=== PATIENT | female | born 1955 | race Caucasian/White ===

== ENCOUNTER → 2018-06-30 10:51 | Outpatient (CLI) | payer OTHER, SELFPAY ==
--- NOTE | 2018-06-30 10:55 | BI_ITS ---
MAMMOGRAPHY - BILATERAL SCREENING REASON FOR EXAM: Female, 62 years old. Routine annual screening examination. PERTINENT HISTORY: Non-contributory. TECHNIQUE: Digital bilateral breast kojo (3D mammographic acquisition) in the CC and MLO projections. 2-D mediolateral oblique (MLO) and craniocaudad (CC) views of both breasts were obtained. CAD: Full Field Digital Mammography with Computer Added Detection was performed. COMPARISON: Comparison is made with prior study dated May 19, 2017 and May 18, 2016. FINDINGS: Breast Composition: There are scattered areas of fibroglandular density. There are no dominant masses or suspicious calcifications. Stable benign-appearing bilateral axillary lymph nodes. No other significant abnormalities are identified. There has been no significant change since the prior study. BI/SCREENING MAMM (CAD), BILAT IMPRESSION: Stable bilateral screening mammogram. Yearly follow-up mammogram recommended. (A) ASSESSMENT CATEGORY: BIRADS Category 2: Benign. A letter regarding these results will be sent to the patient by the facility within 30 days. Approximately 10% of breast cancers are not detected by mammography. A normal mammogram should not delay biopsy of a clinically suspicious abnormality. [id number] Electronically Signed: Bertin Cummins MD at 8:59 EST Tel [phone], Service support ,
--- OUTSIDE RECORDS SUMMARY | 2018-10-03 09:52 | XMS RPT_ITS ---
:1955 Author Organization OHIP Care Team Providers Name Role Phone Antonia Mixon Attending Unavailable Antonia Mixon Primary Care Unavailable PROBLEMS PROBLEMS No Problem Records FoundPROCEDURES PROCEDURES No Procedure Records FoundRESULTS RESULTS SCREENING MAMM (CAD), Observed: 06/30/2018 Status: F Source: [facility] 10:55 AM [facility] REPOSITORY [facility] Imaging Services [address] [place] [id number] SCREENING MAMM (CAD), BIL MR#: [id number] Acct: [id number] Name: SILVINA TERRAZAS Rep #: [id number] : 1955 F 62 From: Bertin Cummins MD PCP: Antonia Mixon MD Status: REG CLI Study: SCREENING MAMM (CAD), BILAT Date of Exam: 06/30/18 Exam# [id number] Ordering Dr: Antonia Mixon MD MAMMOGRAPHY - BILATERAL SCREENING REASON FOR EXAM: Female, 62 years old. Routine annual screening examination. PERTINENT HISTORY: Non-contributory. TECHNIQUE: Digital bilateral breast kojo (3D mammographic acquisition) in the CC and MLO projections. 2-D mediolateral oblique (MLO) and craniocaudad (CC) views of both breasts were obtained. CAD: Full Field Digital Mammography with Computer Added Detection was performed. COMPARISON: Comparison is made with prior study dated May 19, 2017 and May 18, 2016. FINDINGS: Breast Composition: There are scattered areas of fibroglandular density. There are no dominant masses or suspicious calcifications. Stable benign-appearing bilateral axillary lymph nodes. No other significant abnormalities are identified. There has been no significant change since the prior study. BI/SCREENING MAMM (CAD), BILAT IMPRESSION: Stable bilateral screening mammogram. Yearly follow-up mammogram recommended. (A) ASSESSMENT CATEGORY: BIRADS Category 2: Benign. A letter regarding these results will be sent to the patient by the facility within 30 days. Approximately 10% of breast cancers are not detected by mammography. A normal mammogram should not delay biopsy of a clinically suspicious abnormality. [id number] Electronically Signed: Bertin Cummins MD at 8:59 EST Tel [phone], Service support , CC: Antonia Mixon MD Chromosomal Disorders Counselor: Signed ALLERGIES ALLERGIES No Allergies Records FoundENCOUNTERS ENCOUNTERS ADMIT/DISCHARGE ACCOUNT ADMITTING ENCOUNTER LOCATION SOURCE NUMBER CLASS 06/30/2018 [id number] [facility] [address] [place] [address] ing:OPBI Repository PAYERS PAYERS ENCOUNTER GUARANTOR PAYER SUBSCRIBER SOURCE 06/30/2018 BLANCA [facility] Primary SILVINA A [facility] [id number] S Insurance:MEDICAL EDINGTONDOB: [facility] [address] BOX [facility] [id number] Number: Repository [id number]: [phone] [id number] [phone] () Date:[id number] [address]FK: 06/30/2018 Secondary NOT GIVENUNK Otf Insurance:SELF PAY [facility] Number: Effective Repository Date:2018-05-16
== END ==
PROVIDERS: Family Provider Internal Medicine; PCP Internal Medicine; Visit Provider Internal Medicine
DX: Z12.31 Encounter for screening mammogram for malignant neoplasm of breast (principal)
CPT/HCPCS: 77063; 77067

== ENCOUNTER → 2019-01-08 | Outpatient (CLI) | payer OTHER, SELFPAY ==
--- NOTE | 2019-01-08 12:46 | RAD_ITS ---
STUDY: X-RAY CHEST REASON FOR EXAM: Female, 63 years old. Shortness of breath TECHNIQUE: PA and lateral views of the chest. COMPARISON: None. FINDINGS: The lungs are clear and expanded. There is no demonstrated pleural abnormality. Normal size heart. Normal mediastinum and zhang. Normal visualized pulmonary arteries. Normal visualized aortic arch and descending thoracic aorta. Normal visualized thoracic spine. Normal visualized ribs, clavicles, and shoulders. There is no demonstrated abnormality of the visualized soft tissue structures of the upper abdomen. RAD/Chest PA and Lateral IMPRESSION: Normal x-ray examination of the chest. Electronically Signed: Michael Zazueta MD at 16:47 EDT Tel , Service support ,
== END | disposition home or self-care (01) ==
LOC: HPRAD 12:43
PROVIDERS: Family Provider Internal Medicine; PCP Internal Medicine; Referring Provider Internal Medicine; Visit Provider Internal Medicine
DX: R06.02 Shortness of breath (principal)
CPT/HCPCS: 71046

== ENCOUNTER → 2019-01-10 | Outpatient (CLI) | payer OTHER, SELFPAY ==
--- NOTE | 2019-01-10 09:39 | ECHOCS_ITS ---
Reason For Study: Murmur Procedure This was a 2D Doppler, Color Flow transthoracic echocardiogram. Contrast injection was performed. Exam performed in department. Left Ventricle Normal LV size. The estimated ejection fraction is 65 %. Normal diastology for age. No regional wall motion abnormalities noted. Right Ventricle Normal RV size. Normal systolic function. Atria Normal left atrium. Normal right atrium. No doppler evidence for ASD. Mitral Valve There is no mitral valve stenosis. Mild-Moderate (1-2+) mitral valve insufficiency. Tricuspid Valve There is no tricuspid stenosis. Mild tricuspid valve insufficiency. Pulmonary artery systolic pressure is 25 mmHg. Aortic Valve Trisinus/trileaflet aortic valve. There is no aortic stenosis. No aortic valve insufficiency. Pulmonic Valve There is no pulmonic valvular stenosis. No pulmonic valve insufficiency. Great Vessels Normal aortic root. Pericardium/Pleural No pericardial effusion. Medication Diluted definity 2ml given slow IV push to enhance endocardial definition. MMode/2D Measurements & Calculations LVIDd: 4.6 cm IVSd: 1.0 cm Ao root diam: 2.7 cm LVIDs: 2.7 cm LVPWd: 0.92 cm RVDd: 2.4 cm FS: 41.7 % LAV(MOD-bp): 32.2 ml LVAd ap4: 25.3 cm2 SV(MOD-sp4): 45.9 ml LAV(MOD-bp) Indexed: 19.0 ml/m2 EDV(MOD-sp4): 71.6 ml LAV(MOD-sp2): 28.1 ml EDV(sp4-el): 74.0 ml LAV(MOD-sp4): 31.6 ml LVAs ap4: 13.5 cm2 ESV(MOD-sp4): 25.7 ml ESV(sp4-el): 25.5 ml EF(MOD-sp4): 64.1 % EF(sp4-el): 65.5 % SV(sp4-el): 48.5 ml LA A4 area: 13.8 cm2 LA dimension(2D): 4.0 cm RA A4 area: 8.7 cm2 Doppler Measurements & Calculations MV E max sabas: 99.2 cm/sec Lat Peak E' Sabas: 7.7 cm/sec Med Peak E' Sabas: 7.0 cm/sec MV A max sabas: 116.5 cm/sec E/E' lat: 12.8 E/E' med: 14.1 MV E/A: 0.85 Ao V2 max: 190.1 cm/sec LV V1 max: 122.4 cm/sec PA V2 max: 101.9 cm/sec Ao max P.4 mmHg LV V1 max P.0 mmHg Ao V2 mean: 124.3 cm/sec Ao mean P.9 mmHg Ao V2 VTI: 41.0 cm TR max sabas: 229.6 cm/sec TR max P.1 mmHg Interpretation Summary Diluted definity 2ml given slow IV push to enhance endocardial definition. The estimated ejection fraction is 65 %. Normal diastology for age. Mild-Moderate (1-2+) mitral valve insufficiency. Mild tricuspid valve insufficiency. The study was technically difficult. Ordering Physician: Antonia Mixon Referring Physician: Antonia Mixon Performed By: Mary Jane Massey, RDCS, RVT
== END | disposition home or self-care (01) ==
PROVIDERS: Family Provider Internal Medicine; PCP Internal Medicine; Referring Provider Internal Medicine; Visit Provider Internal Medicine
DX: R01.1 Cardiac murmur, unspecified (principal)
CPT/HCPCS: 93306; Q9957; A4216; C8929

== ENCOUNTER → 2019-07-09 08:11 | Outpatient (CLI) | payer OTHER, SELFPAY ==
--- NOTE | 2019-07-09 08:18 | BD_ITS ---
STUDY: DUAL ENERGY X-RAY ABSORPTIOMETRY / DXA REASON FOR EXAM: Female, 63 years old. 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 COMPARISON: Comparison is made with prior examination dated July 04, 2017. FINDINGS: Lumbar Spine (L1-L4): g/cm2 (1.212) / T-score (0.3) / Z-score (1.7) Findings are suggestive of normal bone density with a low fracture risk. Left Femur Total: g/cm2 (0.843) / T-score (-1.3) / Z-score (-0.2) Left Femoral Neck: g/cm2 (0.797) / T-score (-1.7) / Z-score (-0.3) Right Femur Total: g/cm2 (0.819) / T-score (-1.5) / Z-score (-0.4) Right Femoral Neck: g/cm2 (0.756) / T-score (-2.0) / Z-score (-0.6) The T-Scores on the most recent prior examination were: Lumbar Spine (L1-L4): There has been improvement of bone density since the previous examination. Left Femur Total: which represents a worsening of 0.9%. Right Femur Total: which represents a worsening of 1.4%. BD/Dexa Bone Density Study IMPRESSION: The patient is considered osteopenic as outlined below according to World Zain Organization (WHO) criteria with a moderate fracture risk. There has been worsening of bone density since the previous examination. Reference Information: The T-score is the number of standard deviations above or below the standard which is normal for young adults at their peak bone mineral density. The World Health Organization (WHO) interprets the T-scores as follows: Above -1 Normal bone density Between -1 and -2.5 Osteopenia Equal to / or below -2.5 Osteoporosis As a practical clinical guideline, osteopenia may be graded as follows: Mild -1 through -1.5 Moderate -1.6 through -2.0 Severe -2.1 through -2.4 The Z-score is the number of standard deviations above or below age-matched controls. A Z-score of less than -1.5 would be considered abnormal. References: 1. NIH Osteoporosis and Related Bone Diseases http://www.osteo.org 2. International Society for Clinical Densitometry http://www.iscd.org 3. National Osteoporosis Foundation http://www.nof.org Electronically Signed: Bertin Cummins, at 15:27 EST , Service support ,
--- NOTE | 2019-07-09 08:43 | BI_ITS ---
MAMMOGRAPHY - BILATERAL SCREENING 3-D TOMOSYNTHESIS REASON FOR EXAM: Female, 63 years old. NO FAM HX -- NO SX -- BILAT SKIN TAGS MARKED PERTINENT HISTORY: No significant family history. TECHNIQUE: 2-D mammograms and 3-D Tomosynthesis of the breast (s) were performed. CAD was performed. COMPARISON: 06/30/2018 FINDINGS: The breast composition is composed of scattered fibroglandular density. No dense spiculated masses or suspicious microcalcifications are identified. No architectural distortion is identified. There is no skin thickening or retraction. There has been no significant change since the prior study. BI/SCREEN MAMM (CAD) W/MINNIE BILAT IMPRESSION: No mammographic signs of malignancy. Routine yearly mammograms recommended. ASSESSMENT CATEGORY: BIRADS Category 1: Negative. A letter regarding these results will be sent to the patient by the facility within 30 days. FOLLOW UP RECOMMENDATION: Yearly follow up mammogram recommended. (A) Approximately 10% of breast cancers are not detected by mammography. A normal mammogram should not delay biopsy of a clinically suspicious abnormality. Electronically Signed: Melo Dinero MD at 15:16 EST Tel [phone], Service support ,
== END ==
LOC: OPBD 08:12
PROVIDERS: Family Provider Internal Medicine; PCP Internal Medicine; Referring Provider Internal Medicine; Visit Provider Internal Medicine
DX: Z12.31 Encounter for screening mammogram for malignant neoplasm of breast (principal); C50.919 Malignant neoplasm of unspecified site of unspecified female breast; M85.80 Other specified disorders of bone density and structure, unspecified site
CPT/HCPCS: 77063; 77067; 77080

== ENCOUNTER → 2019-09-11 13:08 | Outpatient (CLI) | payer OTHER, SELFPAY ==
--- NOTE | 2019-09-11 13:18 | CT_ITS ---
STUDY: CT ABDOMEN AND PELVIS WITH AND WITHOUT CONTRAST REASON FOR EXAM: Female, 63 years old. MICROSCOPIC HEMATURIA -- [id number] X3 RADIATION DOSAGE (If Supplied By Facility): CTDIvol = ( 18.80 ) mGy, DLP = ( 2063.02 ) mGycm TECHNIQUE: Transaxial images were obtained from the dome of the diaphragm to the symphysis pubis without oral contrast. IV 100mL Isovue-300 was administered. Sagittal and coronal images were reconstructed. Individualized dose optimization techniques were used for this CT. COMPARISON: None. FINDINGS: The visualized lung bases are unremarkable. The visualized portions of the heart are within normal limits. There are calcified gallstones present. The liver, spleen, pancreas and adrenal glands are within normal limits. There are no urinary calculi. There is no hydronephrosis. There are multiple bilateral parapelvic simple cysts. There are no solid or enhancing renal lesions. The urinary bladder is unremarkable. There is no bowel obstruction or inflammation. The appendix is normal. There are colonic diverticula noted without evidence of diverticulitis. There is no abdominal or pelvic free air, free fluid or lymphadenopathy. The aorta is normal in caliber. There are no destructive osseous lesions. CT/CT Abd/Pelvis W/WO Contrast IMPRESSION: No urinary calculi. No hydronephrosis. Bilateral simple parapelvic cysts. No solid or enhancing renal lesions. No cause for patient''s hematuria identified on this study. Electronically Signed: Sergo Her, at 15:04 EST Tel , Service support ,
== END ==
PROVIDERS: PCP Internal Medicine; Referring Provider Internal Medicine; Visit Provider Internal Medicine
DX: R31.29 Other microscopic hematuria (principal)
CPT/HCPCS: 74178; Q9967

== ENCOUNTER → 2020-07-14 11:17 | Outpatient (CLI) | payer OTHER, SELFPAY ==
--- NOTE | 2020-07-14 11:21 | BI_ITS ---
MAMMOGRAPHY - BILATERAL SCREENING REASON FOR EXAM: Female, 64 years old. Routine annual screening examination. PERTINENT HISTORY: BILAT AXILLARY SKIN TAGS TECHNIQUE: Digital bilateral breast minnie (3D mammographic acquisition) in the CC and MLO projections. 2-D mediolateral oblique (MLO) and craniocaudad (CC) views of both breasts were obtained. CAD: Full Field Digital Mammography with Computer Added Detection was performed. COMPARISON: 07/09/2019 and 06/30/2018 FINDINGS: Breast Composition: The breasts are almost entirely fatty. There are no dominant masses or suspicious calcifications. No other significant abnormalities are identified. BI/SCREEN MAMM (CAD) W/MINNIE BILAT IMPRESSION: Stable bilateral screening mammogram. Yearly follow-up mammogram recommended. (A) ASSESSMENT CATEGORY: BIRADS Category 2: Benign. A letter regarding these results will be sent to the patient by the facility within 30 days. Approximately 10% of breast cancers are not detected by mammography. A normal mammogram should not delay biopsy of a clinically suspicious abnormality. [id number] Electronically Signed: Melvin Malloy, at 10:40 EST Tel , Service support ,
== END ==
PROVIDERS: PCP Internal Medicine; Referring Provider Internal Medicine; Visit Provider Internal Medicine
DX: Z12.31 Encounter for screening mammogram for malignant neoplasm of breast (principal)
CPT/HCPCS: 77063; 77067

== ENCOUNTER → 2020-09-15 13:50 | Outpatient (CLI) | payer OTHER, SELFPAY ==
--- NOTE | 2020-09-15 13:53 | CT_ITS ---
STUDY: CT ABDOMEN AND PELVIS WITHOUT CONTRAST REASON FOR EXAM: Female, 64 years old. RLQ PAIN/INCREASING RLQ PAIN/ELEVATED WBC W/CLEAR URINE -- R/O APPENDICITIS RADIATION DOSAGE (If Supplied By Facility): CTDIvol = ( 12.19 ) mGy, DLP = ( 579.55 ) mGycm TECHNIQUE: Transaxial images were obtained from the dome of the diaphragm to the symphysis pubis without oral contrast, and without intravenous contrast. Sagittal and coronal images were reconstructed. Individualized dose optimization techniques were used for this CT. COMPARISON: Comparison is made with prior study dated 09/11/2019. FINDINGS: The visualized lung bases are unremarkable. The visualized portions of the heart are within normal limits. Normal liver. Tiny calcified gallstones. Normal spleen. Normal pancreas. Normal bilateral adrenal glands. Stable bilateral parapelvic cysts. There is a small hiatal hernia. Normal small intestine. There is diverticulosis, with thickening of the colon wall, and pericolonic inflammation changes consistent with acute diverticulitis. The appendix is visualized and appears normal. There is scattered atherosclerotic calcification of the abdominal aorta, without a demonstrated aneurysm. Normal inferior vena cava. Normal retroperitoneum. Normal urinary bladder. Small amount of free fluid is seen in the cul-de-sac. There is a small umbilical hernia containing fat. Disc space narrowing at the L2-L3 and L3-L4 levels. CT/Abdomen/Pelvis without Cont IMPRESSION: Findings in keeping with acute sigmoid diverticulitis. Small amount of free fluid is seen in the pelvis. Electronically Signed: Bertin Cummins MD at 14:32 EST , Service support ,
== END ==
PROVIDERS: PCP Internal Medicine; Visit Provider Internal Medicine
DX: R10.31 Right lower quadrant pain (principal)
CPT/HCPCS: 74176

== ENCOUNTER → 2020-09-15 | Outpatient (CLI) | payer OTHER, SELFPAY ==
[2020-09-15 12:17] LABS: Absolute Lymphocyte Count 1.19 X10^3/uL (0.83-4.51); Absolute Neutrophil Count 9.8 X10^3/uL (2.0-7.7); Basophil# 0.03 X10^3/uL; Basophil% 0.2 % (0-1); Eosinophil# 0.01 X10^3/uL; Eosinophils% 0.1 % (0-5); Hematocrit 42.8 % (37-47); Hemoglobin 14.2 g/dL (12.0-15.0); Lymphocyte # 1.19 X10^3/ul (4.0); Lymphocyte % 9.8 % (19-41); Mean Corp Hgb Conc 33.2 g/dL (32-36); Mean Corpuscular Hgb 31.7 pg (27.0-32.0); Mean Corpuscular Volume 95.5 fL (81-99); Mean Platelet Vol. 10.2 fl (6.2-12.0); Monocyte# 1.05 X10^3/uL; Monocyte% 8.7 % (0-10); NRBC Flagged by Analyzer 0 % (0-5); Neutrophil # 9.77 X10^3/uL (2.7-7.7); Neutrophil % 80.9 % (47-70); Platelet Count 220 K/mm3 (150-450); RBC Distribution Width CV 11.8 % (11.6-14.6); RBC Distribution Width SD 40.8 fl (35.1-43.9); Red Blood Count 4.48 M/mm3 (4.2-5.4); White Blood Count 12.1 K/mm3 (4.4-11.0)
[2020-09-15 12:37] LABS: ALB/GLOB Ratio 1.1 RATIO (0.9-2.4); AST(SGOT) 19 U/L (15-37); Alanine Aminotransfer ALT/SGPT 22 U/L (13-56); Alkaline Phosphatase 82 U/L (45-117); Anion Gap 7 (5-15); BUN 12 mg/dL (7-18); BUN/Creat Ratio 16.1 RATIO (10-20); Calcium,Total 9.3 mg/dL (8.5-10.1); Chloride 100 mmol/L (98-107); Creatinine, Serum 0.74 mg/dL (0.55-1.02); EST Glomerular Filtration Rate 83 mL/min (>60); Est Glom Filt Rate - Afr Amer 101 mL/min (>60); Globulin 3.5 g/dL (2.2-4.2); Glucose 105 mg/dL (74-106); Potassium 4.2 mmol/L (3.5-5.1); Protein, Total 7.5 g/dL (6.4-8.2); Sodium Level 138 mmol/L (136-145)
== END | disposition home or self-care (01) ==
LOC: LABSPEC 12:00
PROVIDERS: PCP Internal Medicine; Referring Provider Internal Medicine; Visit Provider Internal Medicine
DX: R10.9 Unspecified abdominal pain (principal)
CPT/HCPCS: 80053; 85025

== ENCOUNTER → 2021-02-03 11:38 | Outpatient (CLI) | payer MEDICARE, SELFPAY ==
[2021-02-03 11:54] LABS: Absolute Lymphocyte Count 1.75 X10^3/uL (0.83-4.51); Absolute Neutrophil Count 2.6 X10^3/uL (2.0-7.7); Basophil# 0.01 X10^3/uL; Basophil% 0.2 % (0-1); Eosinophil# 0.16 X10^3/uL; Eosinophils% 3.2 % (0-5); Hematocrit 42.2 % (37-47); Hemoglobin 14.1 g/dL (12.0-15.0); Lymphocyte # 1.75 X10^3/ul (0.83-4.51); Lymphocyte % 35.2 % (19-41); Mean Corp Hgb Conc 33.4 g/dL (32-36); Mean Corpuscular Hgb 31.7 pg (27.0-32.0); Mean Corpuscular Volume 94.8 fL (81-99); Mean Platelet Vol. 10.2 fl (6.2-12.0); Monocyte# 0.42 X10^3/uL; Monocyte% 8.5 % (0-10); NRBC Flagged by Analyzer 0 % (0-5); Neutrophil # 2.61 X10^3/uL (2.7-7.7); Neutrophil % 52.5 % (47-70); Platelet Count 235 K/mm3 (150-450); RBC Distribution Width CV 11.9 % (11.6-14.6); RBC Distribution Width SD 41.7 fl (35.1-43.9); Red Blood Count 4.45 M/mm3 (4.2-5.4)
[2021-02-03 12:03] LABS: Erythrocyte Sedimentation Rate 9 mm/hr (0-30)
[2021-02-03 12:19] LABS: ALB/GLOB Ratio 1.1 RATIO (0.9-2.4); AST(SGOT) 17 U/L (15-37); Alanine Aminotransfer ALT/SGPT 27 U/L (13-56); Albumin, Serum 3.9 g/dL (3.2-5.0); Alkaline Phosphatase 68 U/L (45-117); Anion Gap 4 (5-15); BUN 15 mg/dL (7-18); BUN/Creat Ratio 20.5 RATIO (10-20); CRP < 2.90 mg/L (0.0-3.0); Calcium,Total 9.3 mg/dL (8.5-10.1); Chloride 104 mmol/L (98-107); Creatinine, Serum 0.73 mg/dL (0.55-1.02); EST Glomerular Filtration Rate 85 mL/min (>60); Est Glom Filt Rate - Afr Amer 103 mL/min (>60); Globulin 3.5 g/dL (2.2-4.2); Glucose 93 mg/dL (74-106); Lipase 88 U/L (73-393); Potassium 3.9 mmol/L (3.5-5.1); Protein, Total 7.4 g/dL (6.4-8.2); Sodium Level 140 mmol/L (136-145)
== END ==
PROVIDERS: PCP Internal Medicine; Visit Provider Internal Medicine
DX: R10.9 Unspecified abdominal pain (principal)
CPT/HCPCS: 80053; 83690; 85025; 85652; 86140

== ENCOUNTER → 2021-02-17 12:07 | Outpatient (CLI) | payer MEDICARE, SELFPAY ==
--- NOTE | 2021-02-17 12:11 | US_ITS ---
STUDY: ULTRASOUND OF THE FEMALE PELVIS - COMPLETE REASON FOR EXAM: Female, 65 years old. pelvic pain , hx diverticulitis LMP: Postmenopausal TECHNIQUE: Transabdominal TECHNICAL QUALITY: Adequate. COMPARISON: None. FINDINGS: The uterus is anteverted and is in a midline position. The uterus measures 9.1 x 4.6 x 2.5 cm. There is a Nabothian cyst of the cervix. The endometrium measures 2.5 mm in thickness, and is hyperechoic with slight fluid distention. There is no demonstrated endometrial mass. There is no demonstrated myometrial mass. I.U.D. - The patient does not have an I.U.D. The right ovary is non-visualized. There is no visualized right adnexal mass or complex lesion. The left ovary is visualized. The left ovary measures 2.3 x 2.0 x 1.3 cm. There is no left ovarian cyst or ovarian mass. There is no visualized left adnexal mass or complex lesion. There is normal arterial and normal venous vascularity. There is no fluid in the cul-de-sac. Visualized urinary bladder is unremarkable. US/Pelvic (Non ) IMPRESSION: 1. Normal postmenopausal female pelvis. 2. Nonvisualized right ovary. Electronically Signed: Cheng Kent MD ([place]) at 8:50 EDT , Service support ,
== END ==
PROVIDERS: PCP Internal Medicine; Referring Provider Internal Medicine; Visit Provider Internal Medicine
DX: R10.9 Unspecified abdominal pain (principal)
CPT/HCPCS: 76856

== ENCOUNTER 2021-03-16 10:30 | Outpatient (RCR) | payer MEDICARE, SELFPAY ==
--- NOTE | 2021-01-11 14:34 | HP.PTEVAL ---
Patient's Visit Information SILVINA TERRAZAS is a 65 year old F referred to Physical Therapy by Dr. Antonia Mixon MD with a diagnosis of LOW BACK PAIN. Date of Evaluation: 01/11/21 Physical Therapist: Karen Soares PT, Cert MDT - Visit Plan Frequency: 2-3x /Week Duration: 4-6 Weeks Plan: NO US OR E-STIM. POSTURE CORRECTION/STRENGTHENING, INSTRUCTION IN APPROPRIATE BODY MECHANICS AND ACTIVITY MODIFICATIONS. DLS STARTING WITH A NEUTRAL SPINE PROGRESSING ROM TOLERATED. FAUSTO LE ROM, STRETCHING AND STRENGTHENING. HEP INSTRUCTION. 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 Present symptoms: FAUSTO LOW BACK PAIN. PATIENT DENIES FAUSTO LE PAIN, NUMBESS AND TINGLING. STARTED WITH RIGHT LBP BUT ABOUT 2 WEEKS AGO SEVERE SPASM LEFT LOW BACK THAT DROPPED HER TO HER KNEES. Present since: APPROX OCTOBER 2020. Pain Scale: WORST 6/10, LEAST 0/10. Currently: 4/10. Commenced as a result of: NO APPARENT REASON OTHER THAN DOING MORE SITTING AROUND THAN USUAL. INCREASED PAIN IN L LB FOR NO APPARENT REASON. Symptoms at onset: RIGHT LOW BACK SPASMS. Worse: REACHING. PROLONGED SITTING, STANDING, WALKING. BENDING. TWISING. Better: MUSCLE RELAXER, ANTI-INFLAMMATORY. FREQUENT CHANGE OF POSITION. HEAT. OTHER: PATIENT HAS TRIED WEARING HER HUSBANDS BACK BRACE AT TIMES OVER THE LAST TWO WEEKS AND SOMETIMES IT HELPS AND SOMETIMES IT DOESN'T. Disturbed sleep: YES. STATES THEY HAVE TRIED MANY BEDS BUT CAN'T GET COMFORTABLE SO HAS BEEN SLEEPING IN A RECLINER FOR ABOUT 4 YEARS. Previous history/Previous treatment: 2017 HAD PT HERE FOR LBP WITH GOOD RESPONSE AND FOLLOWED THROUGH WITH AQUATIC THERAPY AND GYM EX'S UNTIL September 2019. Treatment this episode: MUSCLE RELAXER, ANTI-INFLAMMATORY AND PT REFERRAL. Coughing/sneezing/straining: NEGATIVE. Gait: I'M VERY STIFF. TIME AND DISTANCE LIMITED. SLOWER. NO CANE OR WALKER. Difficulty initiating urinatin: NO. Accidents: NO. Unexplained weight loss: NO. Imaging: NO NEW LUMBAR X-RAYS ORDERED THIS EPISODE. 2017 BACK X-RAYS: STUDY: X-RAY - LUMBAR SPINE. REASON FOR EXAM: Female, 60 years old. Right-sided low back pain. No. trauma. TECHNIQUE: 5 view(s) of the lumbar spine were obtained. COMPARISON: None. . FINDINGS: Normal lumbar lordosis. There is mild levoscoliosis. There is minimal. retrolisthesis at L2-3. There is multilevel endplate spondylosis of the lumbar vertebrae. There is. degenerative disc disease at L2-3 and L3-4 with disc space narrowing.. There is facet arthrosis at L3-4, L4-5 and L5-S1. The soft tissue structures are unremarkable. . RAD/L/S Spine Min 4 Views. IMPRESSION: Levoscoliosis with degenerative disc disease at L2-3 and L3-4 with. multilevel facet arthrosis. PMH/Recent major surgery: HTN. OTHER: ALSO DX'D WITH DIVERTICULITIS IN AUG AND WAS VERY SEDINTARY. WHEN TRIED TO RESUME ACTIVITY ABOUT 3 WEEKS AGO THE SEVERE L LBP STARTED. STATES SHE GOT SICK WITH BOTH COVID SHOTS IN SEPTEMBER AND OCTOBER TOO. THIS PT QUESTIONED PATIENT ABOUT HISTORY OF R KNEE PROBLEMS AND PATIENT DID NOT RECALL A PROBLEM UNTIL WE LOOKED UP HER PT RE-EVAL. - Objective Sitting Posture: POOR. Standing Posture: FAIR. Lordosis: REDUCED. Lateral shift: NO. Relevant shift: N/A. Active Correction of posture: NE. Other Observations: INDEP SIT TO STAND WITHOUT UE'S BUT LESS PAIN WITH USE OF UE'S. Motor deficit: FAUSTO LE'S 5/5 EXCEPT HIPS 4/5. Sensory deficit: NO. ROM deficit: WFL. Reflexes: LLE 2/2, RIGHT LE 1/2. Dural Signs: MILDLY POSITIVE FAUSTO LE'S. Lumbar mvmt loss: flex - MIN. ext - MOD. R SG - MOD. L SG - MOD. Core strength: POOR. Palpation: LUMBOSACRAL AREA'S ARE NOT TENDER WITH LIGHT PALPATION OF THE LUMBAR SPINE RIGHT NOW. INCREASED MUSCLE TONE FAUSTO PARASPINALS. TREATMENT: NEUROMUSCULAR REEDUCATION - REINFORCEMENT OF RETRAINING OF MVMT AND POSTURE FOR SITTING, LYING AND STANDING ACTIVITIES. - Goals Goal 1:: DECREASE C/O LBP Goal Time Frame: 4-6 Weeks Goal 2:: IMPROVE LIFTING, WALKING, SITTING, STANDING, SLEEP, SOCIAL LIFE, TRAVEL AND HOMEMAKING FUNCTION. Goal Time Frame: 4-6 Weeks Goal 3:: INSTRUCT IN PROPHYLAXIS Goal Time Frame: 4-6 Weeks - Anticipated Interventions Patient/Client Instruction: Educate patient on: Condition, Plan of Care, Risk Factors For the Purpose of:: To improve self management Therapeutic Exercise to Include: Strength training, Body mechanics, Postural training, Flexibilty training, Neuromotor development, In an aquatic setting, Dynamic Lumbar Stabilization For the Purpose of:: To decrease pain, To improve muscle performance and motor function, To increase tolerance to activity/condition/position, To improve ability of physical actions for home/community/work/leisure Thank you for the opportunity to evaluate your patient. For Medicare and Medicare HMO plans, please review the plan of care and approve it. It will need to be FAXED BACK to us at [phone] for Medicare purposes. For Medicare only, by signing this I certify the plan of care. Please let me know if there are questions or concerns regarding this plan of care. Physician Signature: Date:
--- NOTE | 2021-02-11 13:57 | HP.PTREVAL ---
Dr. Antonia Mixon MD, It has been my pleasure to treat SILVINA TERRAZAS over the last 10 visits for LOW BACK PAIN. Please see the progress note below for an update on the physical therapy plan of care! Subjective: PATIENT REPORTS SHE IS DOING A LOT BETTER. HAVING MORE GOOD DAYS THAN BAD DAYS FOR SURE. STATES SHE PROVOKED SOME PAIN TRYING INDEP POOL EX RECENTLY. WOULD LIKE TO HAVE SOME MORE INSTRUCTION SHE TRIES TO GET MORE INDEP. Objective/Function: PATIENT WAS SEEN TODAY FOR RE-ASSESSMENT OF PROGRESS TOWARD THE SET PT GOALS AND THE NEED FOR FURTHER PHYSICAL THERAPY VS READINESS FOR DISCHARGE. PATIENT'S GAIT AND TRANSFERS ARE LESS GUARDED BUT NOT WNL. SHE IS REPORTING DECREASED PAIN, HAS LESS PARASPINAL GUARDING, INCREASED HIP STRENGHT AND NEGATIVE FAUSTO LE DURAL TESTING NOW. HER BACK REHAB APPEARS TO BE SOMEWHAT LIMITED BY HER KNEE PAIN BUT WE ARE WORKING THE BEST WE CAN WITH HER BACK WHILE TRYING TO AVOID KNEE PAIN. UPON EXAM TODAY: INDEP SIT TO STAND WITHOUT UE ASSIST EASILY TODAY. Motor deficit: FAUSTO LE'S 5/5 EXCEPT HIPS 4+/5. Sensory deficit: NO. ROM deficit: WFL. Reflexes: 2/3 FAUSTO LE'S. Dural Signs: NEGATIVE FAUSTO LE'S. Lumbar mvmt loss: flex - NIL. ext - MOD. R SG - MOD. L SG - MOD. PATIENT DENIES LBP WITH LUMBAR ROM TESTING ALL PLANES TODAY. Core strength: POOR. Palpation: LUMBOSACRAL AREA'S ARE NOT TENDER WITH LIGHT PALPATION OF THE LUMBAR SPINE RIGHT NOW. INCREASED MUSCLE TONE FAUSTO PARASPINALS. Plan Plan: CONTINUE AQUATIC THERAPY 1/WK X 4 WEEKS TO HELP PATIENT SAFELY TRANSITION [facility] TO INDEP POOL EX WITH MEMBERSHIP. PATIENT IS AGREEABLE. Balance/Gait/Functional tests - Balance/Special Test Scores Oswestry Low Back Score: 12 Goals Goal 1:: DECREASE C/O LBP Goal Time Frame: 4-6 Weeks Goal Progress: Progressing Goal 2:: IMPROVE LIFTING, WALKING, SITTING, STANDING, SLEEP, SOCIAL LIFE, TRAVEL AND HOMEMAKING FUNCTION. Goal Time Frame: 4-6 Weeks Goal Progress: Progressing Goal 3:: INSTRUCT IN PROPHYLAXIS Goal Time Frame: 4-6 Weeks Goal Progress: Progressing Anticipated Interventions Patient/Client Instruction: Educate patient on: Condition, Plan of Care, Risk Factors For the Purpose of:: To improve self management Therapeutic Exercise to Include: Strength training, Body mechanics, Postural training, Flexibilty training, Neuromotor development, In an aquatic setting, Dynamic Lumbar Stabilization For the Purpose of:: To decrease pain, To improve muscle performance and motor function, To increase tolerance to activity/condition/position, To improve ability of physical actions for home/community/work/leisure Please do not hesitate to contact me at [phone] by phone or if you have questions or concerns regarding this new plan of care! Sincerely, Karen Soares, PT, Cert MDT
--- NOTE | 2021-03-16 10:53 | HP.PTDCSUM ---
It has been my pleasure to treat SILVINA TERRAZAS referred by Dr. Antonia Mixon MD, with the diagnosis of LOW BACK PAIN for a total of 15 visit(s). Discharge Date: Please see the following information for a summary of their discharge status. Subjective: PATIENT REPORTS HER PAIN IS MANAGEABLE NOW WITH OCCASSIONAL TYLONOL AND ACTIVITY MODIFICATIONS. WORKING ABOUT 7-8 HOURS A DAY. STATES THE WATER THERAPY HAS REALLY HELPED AND PLANS TO CONTINUE INDEP WATER EX. LB Pain Intensity (Out of 10): 0 R knee Pain Intensity (Out of 10): 0 LLE Pain Intensity (Out of 10): 0 % Improvement: 90 Objective/Function: PATIENT WAS SEEN TODAY FOR RE-ASSESSMENT OF PROGRESS TOWARD THE SET PT GOALS AND THE NEED FOR FURTHER PHYSICAL THERAPY VS READINESS FOR DISCHARGE. PATIENT HAS DONE REALLY WELL WITH AQUATIC THERAPY AND ALL GOALS HAVE BEEN MET. PATIENT WITH NO C/O KNEE PAIN TODAY. UPON EXAM TODAY: INDEP SIT TO STAND WITHOUT UE ASSIST EASILY TODAY. Motor deficit: FAUSTO LE'S 5/5 EXCEPT HIPS 4+/5. Sensory deficit: NO. ROM deficit: WFL. Reflexes: 2/3 FAUSTO LE'S. Dural Signs: NEGATIVE FAUSTO LE'S. Lumbar mvmt loss: flex - NIL. ext - MOD. R SG - MIN. L SG - MIN. PATIENT DENIES LBP WITH LUMBAR ROM TESTING ALL PLANES TODAY. Core strength: FAIR Goal 1:: DECREASE C/O LBP Goal Progress: Goal Met Goal 2:: IMPROVE LIFTING, WALKING, SITTING, STANDING, SLEEP, SOCIAL LIFE, TRAVEL AND HOMEMAKING FUNCTION. Goal Progress: Goal Met Goal 3:: INSTRUCT IN PROPHYLAXIS Goal Progress: Goal Met Plan: D/C TO INDEP WATER EX If there are questions or concerns regarding this patient's physical therapy, please feel free to call me at [phone]. Thank you for the referral of this patient. Sincerely, Karen Soares, PT, Cert MDT Balance/Gait/Functional tests - Balance/Special Test Scores Oswestry Low Back Score: 10
== END 2021-03-16 19:00 | disposition home or self-care (01) ==
LOC: PT 10:30
PROVIDERS: PCP Internal Medicine; Referring Provider Internal Medicine; Visit Provider Internal Medicine
DX: M54.5 Low back pain (principal)
CPT/HCPCS: 97112; 97113; 97162; 97164

== ENCOUNTER 2021-08-10 12:40 | Outpatient (CLI) | payer MEDICARE, SELFPAY ==
--- NOTE | 2021-08-10 12:45 | BI_ITS ---
MAMMOGRAPHY - BILATERAL SCREENING REASON FOR EXAM: Female, 65 years old. Routine annual screening examination. PERTINENT HISTORY: Non-contributory. TECHNIQUE: Digital bilateral breast minnie (3D mammographic acquisition) in the CC and MLO projections. 2-D mediolateral oblique (MLO) and craniocaudad (CC) views of both breasts were obtained. CAD: Full Field Digital Mammography with Computer Added Detection was performed. COMPARISON: Comparison is made with prior study dated 07/14/2020 and 07/09/2019. FINDINGS: Breast Composition: The breasts are almost entirely fatty. There are no dominant masses or suspicious calcifications. Stable benign-appearing bilateral axillary lymph nodes. No other significant abnormalities are identified. There has been no significant change since the prior study. BI/SCRN MAMM (CAD)W/MINNIE BILAT IMPRESSION: Stable bilateral screening mammogram. Yearly follow-up mammogram recommended. (A) ASSESSMENT CATEGORY: BIRADS Category 2: Benign. A letter regarding these results will be sent to the patient by the facility within 30 days. Approximately 10% of breast cancers are not detected by mammography. A normal mammogram should not delay biopsy of a clinically suspicious abnormality. [id number] Electronically Signed: Bertin Cummins MD at 13:58 EST ,
--- NOTE | 2021-08-10 12:59 | BD_ITS ---
STUDY: DUAL ENERGY X-RAY ABSORPTIOMETRY / DXA REASON FOR EXAM: Female, 65 years old. M85.89 -- OSTEOPENIA TECHNIQUE: Bone Mineral Density (BMD) measurements of lumbar spine and bilateral hips were obtained. COMPARISON: Comparison is made with prior study dated 07/09/2019. FINDINGS: Lumbar Spine (L1-L4): g/cm2 (0.948) / T-score (-0.9) / Z-score (0.9) Findings are suggestive of normal bone density with a low fracture risk. Left Femur Total: g/cm2 (0.779) / T-score (-1.3) / Z-score (-0.1) Left Femoral Neck: g/cm2 (0.579) / T-score (-2.4) / Z-score (-0.9) Right Femur Total: g/cm2 (0.761) / T-score (-1.5) / Z-score (-0.2) Right Femoral Neck: g/cm2 (0.543) / T-score (-2.8) / Z-score (-1.2) The T-Scores on the most recent prior examination were: Lumbar Spine (L1-L4): There has been worsening of bone density since the previous examination. Left Femur Total: which represents a worsening of 0.4%. Right Femur Total: which represents an improvement of 0.4%. BD/Dexa Bone Density Study IMPRESSION: The patient is considered osteoporotic as outlined below according to World [employer] Organization (WHO) criteria with a high fracture risk. There has been worsening of bone density since the previous examination. Reference Information: The T-score is the number of standard deviations above or below the standard which is normal for young adults at their peak bone mineral density. The World Health Organization (WHO) interprets the T-scores as follows: Above -1 Normal bone density Between -1 and -2.5 Osteopenia Equal to / or below -2.5 Osteoporosis As a practical clinical guideline, osteopenia may be graded as follows: Mild -1 through -1.5 Moderate -1.6 through -2.0 Severe -2.1 through -2.4 The Z-score is the number of standard deviations above or below age-matched controls. A Z-score of less than -1.5 would be considered abnormal. References: 1. NIH Osteoporosis and Related Bone Diseases www osteo.org 2. International Society for Clinical Densitometry www iscd.org 3. National Osteoporosis Foundation www nof.org Electronically Signed: Bertin Cummins MD at 14:31 EST ,
== END 2021-08-10 23:59 | disposition short-term general hospital (02) ==
LOC: OPBD 12:41
PROVIDERS: PCP Internal Medicine; Referring Provider Internal Medicine; Visit Provider Internal Medicine
DX: Z12.31 Encounter for screening mammogram for malignant neoplasm of breast (principal); M85.80 Other specified disorders of bone density and structure, unspecified site; M81.0 Age-related osteoporosis without current pathological fracture
CPT/HCPCS: 77063; 77067; 77080

== ENCOUNTER → 2022-08-17 | Outpatient (CLI) | payer MEDICARE, SELFPAY ==
--- NOTE | 2022-08-17 10:00 | BI_ITS ---
MAMMOGRAPHY - BILATERAL SCREENING REASON FOR EXAM: Female, 66 years old. Routine annual screening examination. PERTINENT HISTORY: Non-contributory. TECHNIQUE: Digital bilateral breast minnie (3D mammographic acquisition) in the CC and MLO projections. 2-D mediolateral oblique (MLO) and craniocaudad (CC) views of both breasts were obtained. CAD: Full Field Digital Mammography with Computer Added Detection was performed. COMPARISON: Comparison is made with prior examination of 02/07/2022 and 07/14/2020. FINDINGS: Breast Composition: There are scattered areas of fibroglandular density. There are no dominant masses or suspicious calcifications. Stable benign-appearing bilateral axillary lymph nodes. No other significant abnormalities are identified. There has been no significant change since the prior study. BI/SCRN MAMM (CAD)W/MINNIE BILAT IMPRESSION: Stable bilateral screening mammogram. Yearly follow-up mammogram recommended. (A) ASSESSMENT CATEGORY: BIRADS Category 2: Benign. A letter regarding these results will be sent to the patient by the facility within 30 days. Approximately 10% of breast cancers are not detected by mammography. A normal mammogram should not delay biopsy of a clinically suspicious abnormality. [id number] Electronically Signed: Bertin Cummins MD at 12:27 EST ,
== END | disposition home or self-care (01) ==
LOC: OPBI 09:59
PROVIDERS: PCP Internal Medicine; Referring Provider Internal Medicine; Visit Provider Internal Medicine
DX: Z12.31 Encounter for screening mammogram for malignant neoplasm of breast (principal)
CPT/HCPCS: 77063; 77067

== ENCOUNTER 2022-12-25 03:56 | Emergency (ER) | payer MEDICARE, SELFPAY ==
[2022-12-25 03:57] VITALS: BP 164/97; PULSE 73; RESP 20; TEMP 36.7; O2SAT 97; BMI 31.4
[2022-12-25 04:38] LABS: Absolute Lymphocyte Count 1.99 X10^3/uL (0.83-4.51); Absolute Neutrophil Count 5.7 X10^3/uL (2.0-7.7); Basophil# 0.03 X10^3/uL; Basophil% 0.4 % (0-1); Eosinophil# 0.04 X10^3/uL; Eosinophils% 0.5 % (0-5); Hematocrit 40.5 % (37-47); Hemoglobin 13.9 g/dL (12.0-15.0); Lymphocyte # 1.99 X10^3/ul (0.83-4.51); Lymphocyte % 24.3 % (19-41); Mean Corp Hgb Conc 34.3 g/dL (32-36); Mean Corpuscular Hgb 32.2 pg (27.0-32.0); Mean Corpuscular Volume 93.8 fL (81-99); Mean Platelet Vol. 10.1 fl (6.2-12.0); Monocyte% 4.9 % (0-10); NRBC Flagged by Analyzer 0 % (0-5); Neutrophil # 5.68 X10^3/uL (2.7-7.7); Neutrophil % 69.4 % (47-70); Platelet Count 239 K/mm3 (150-450); RBC Distribution Width CV 11.9 % (11.6-14.6); Red Blood Count 4.32 M/mm3 (4.2-5.4); White Blood Count 8.2 K/mm3 (4.4-11.0)
[2022-12-25 04:39] LABS: Mucous, Urine 0 SEEN /hpf (<or=2+); White Blood Cells 0 SEEN /hpf (0-5)
[2022-12-25 04:41] LABS: Color, Urine Yellow (Yellow); Glucose, Dipstick Normal (Normal); Ketone-Dipstick 5 mg/dl (Negative); Leukocyte Esterase-Dipstick Negative /ul (Negative); Nitrite-Dipstick Negative (Negative); Occult Blood-Urine 150 /ul (Negative); Protein-Dipstick 15 mg/dl (Negative); Urine Bilirubin Dipstick Negative (Negative); Urine Clarity Clear (Clear); Urine Urobilinogen Normal (Normal)
[2022-12-25] MEDS: Ondansetron 4 MG/2 ML Vial IV (04:46)
[2022-12-25] MEDS: 0.9% Normal Saline 1,000 ML 999 ML IV (04:46)
[2022-12-25] MEDS: Ketorolac 15 MG/ML Vial IV (04:46)
--- NOTE | 2022-12-25 04:51 | CT_ITS ---
EXAM: CT Abdomen And Pelvis W/O Contrast Injection HISTORY: left flank pain TECHNIQUE: Routine protocol CT abdomen and pelvis. IV Contrast: None.. Oral contrast: None. RADIATION DOSAGE (If Supplied By Facility): CTDIvol = ( 10.06 ) mGy, DLP = ( 462.33 ) mGycm Individualized dose optimization techniques were used for this CT. COMPARISON: CT abdomen and pelvis 09/15/2020. LIMITATIONS: None. FINDINGS: LOWER CHEST: Included lung bases are clear. Small hiatal hernia LIVER: Grossly unremarkable. GALLBLADDER AND BILIARY TREE: Grossly unremarkable. PANCREAS: Grossly unremarkable. SPLEEN: Grossly unremarkable. ADRENAL GLANDS: Grossly unremarkable. KIDNEYS AND URETERS: There is a 2 mm calculus in the distal left ureter at the ureterovesical junction. The left ureter is dilated with moderate left hydronephrosis, perinephric stranding and fluid. No other calculi demonstrated. No hydronephrosis on the right. Likely parapelvic cysts bilaterally. PERITONEUM: No free air. No free fluid. BOWEL: Diverticulosis throughout the colon No bowel obstruction. APPENDIX: Visualized and unremarkable. No evidence of acute appendicitis. VESSELS: Abdominal aorta is normal caliber. REPRODUCTIVE ORGANS: Grossly unremarkable URINARY BLADDER: Grossly unremarkable. ABDOMINAL WALL: Unremarkable. BONES: Degenerative changes of the lumbar spine. CT/Abdomen/Pelvis without Cont IMPRESSION: Distal left ureteral calculus with moderate left hydroureteronephrosis. Colonic diverticulosis without evidence of acute diverticulitis. Electronically Signed: Isi Cerna MD at 5:53 EDT ,
[2022-12-25] MEDS: DiphenhydrAMINE 50 MG/ML Syringe IV (04:56)
[2022-12-25 04:57] LABS: Bacteria 1+ /hpf (None Seen); Red Blood Cells-Urine 0-5 SEEN /hpf (0-5); Squamous Epithelial Cells - UA 0-5 SEEN /hpf (5-10)
[2022-12-25 04:58] LABS: AST(SGOT) 27 U/L (15-37); Alanine Aminotransfer ALT/SGPT 29 U/L (13-56); Alkaline Phosphatase 54 U/L (45-117); Anion Gap 6 (5-15); BUN 26 mg/dL (7-18); BUN/Creat Ratio 29.8 RATIO (10-20); Bilirubin, Direct 0.09 mg/dL (0.00-0.30); Chloride 108 mmol/L (98-107); Creatinine, Serum 0.87 mg/dL (0.55-1.02); EST Glomerular Filtration Rate 69 mL/min (>60); Est Glom Filt Rate - Afr Amer 83 mL/min (>60); Estimated Creatinine Clearance 45.07 ml/min; Globulin 3.5 g/dL (2.2-4.2); Glucose 146 mg/dL (74-106); Lipase 39 U/L (13-75); Potassium 3.8 mmol/L (3.5-5.1); Protein, Total 7.5 g/dL (6.4-8.2); Sodium Level 141 mmol/L (136-145)
[2022-12-25] MEDS: Morphine 4 MG/ML Syringe IV (05:51)
--- NOTE | 2022-12-25 06:39 | EX.ED.DYSGE1 ---
HPI History of Present Illness Chief Complaint: Abd Pain Informant: patient and spouse/S.O. Narrative Narrative: Patient is a 67-year-old female who reports that she awoke from sleep with pain in the left sided abdomen. She states after the pain came on she developed bouts of nausea and vomiting. She denies any fevers chills loose stool/diarrhea dysuria or hematuria. She states she took some [id number] medication without symptom improvement and with the persistent pain was advised to come to the hospital for evaluation [facility] Medical History (Updated 12/25/22 @ 06:[address] Valdez Harvey, DO) Diverticulitis Hyperlipemia IBS (irritable bowel syndrome) Seasonal allergies Home Medications ketorolac 10 mg tablet 10 mg PO 4X/DAY PRN PRN pain 5 days #20 tabs 12/25/22 [Rx Last Taken Unknown] ondansetron 4 mg disintegrating tablet 4 mg PO TID PRN nausea and vomiting #21 tabs 12/25/22 [Rx Last Taken Unknown] oxycodone-acetaminophen 5 mg-325 mg tablet (Percocet) 1 tab PO Q6H PRN pain 3 days #12 tabs 12/25/22 [Rx Last Taken Unknown] rosuvastatin 40 mg tablet 40 mg PO QHS 12/25/22 [History Last Taken Unknown] tamsulosin 0.4 mg capsule (Flomax) 0.4 mg PO DAILY #14 caps 12/25/22 [Rx Last Taken Unknown] Allergy/AdvReac Type Severity Reaction Status Date / Time milk Allergy Upset Verified 12/25/22 03:57 Stomach Penicillins Allergy Upset Verified 12/25/22 03:57 Stomach Surgical History (Updated 12/25/22 @ 04:00 by Mariah Quintana) History of delivery Social History Smoking Status: Never smoker ROS ROS ED Constitutional Constitutional ED: Denies chills or fever(s) ENT ENT ED: Denies sore throat Cardiovascular Cardiovascular: Denies chest pain Respiratory/Chest Respiratory/Chest: Denies cough or dyspnea Gastrointestinal Gastrointestinal: Reports abdominal pain, nausea and vomiting; Denies diarrhea Genitourinary Genitourinary ED: Denies dysuria or hematuria Musculoskeletal Musculoskeletal: Reports back pain; Denies myalgias Integumentary Denies rash Neurologic Neurologic: Denies headache(s) Hematologic/Lymphatic Hematologic/Lymphatic: Denies easy bleeding or easy bruising EXAM Physical Exam Const Vital Signs: 12/25/22 03:57 Temperature 98.1 F Temperature Source Temporal Pulse Rate 73 Respiratory Rate 20 H Blood Pressure 164/97 H Blood Pressure Mean 119 Pulse Ox 97 Oxygen Delivery Method Room Air Positive well nourished and well developed General Appearance ED: well developed HEENT Reports moist mucous membranes HEENT Narrative: No signs of infection in the posterior pharynx noted Eyes PERRL and EOMs intact bilaterally General Eye ED: Negative for scleral icterus Neck supple Resp normal respiratory effort and clear to auscultation bilaterally Cardio regular rate and regular rhythm Rate: other Other Details: Radial pulses are plus 2 out of 4 bilaterally are equal and symmetric GI non-tender and non-distended GI Narrative: Abdomen is obese soft and nondistended with normal active bowel sounds. Patient has pain with palpation in the left lower quadrant without voluntary guarding or rigidity. No pulsatile mass or fluid wave noted. Auscultation: normoactive bowel sounds Palpation: soft Back/Spine no CVA tenderness Extremity normal to inspection Neuro oriented x3, CN's II-XII intact bilaterally and no sensory deficits noted Sensorium / Orientation: alert Motor Exam: strength 5/5 throughout Psych mental status grossly normal Skin no rashes or lesions noted General Skin Exam: Negative for jaundice MDM MDM MDM Narrative Medical decision making narrative: Patient presented to the ER slightly hypertensive but is in pain and otherwise vitals are stable. She had sudden onset pain that woke her from sleep and then nausea and vomiting developed. Differential diagnosis includes diverticulitis versus kidney stone versus UTI versus pancolitis. With patient having sudden onset pain that seem to fluctuate in intensity/severity I did feel this is most likely kidney stone and therefore basic labs and a urine sample were obtained. Labs revealed no signs of acute kidney injury or urosepsis. Urine showed a large amount of blood concerning for stone so a noncontrast CT was ordered. CT confirmed a 2 mm stone in the distal left UVJ with hydronephrosis. This is consistent with the location of her pain and the intermittent symptoms. Despite the hydronephrosis patient does not have ANGEL. After being treated with IV fluids Toradol Benadryl and morphine she had improvement of her pain. Therefore at this time as there is no ANGEL urosepsis or intractable pain should be given symptomatic medications and discharged home with outpatient urology follow-up. History & Record Review Discussion w/independent historian: Patient and Significant other Lab Data Attestation: I reviewed the patient's lab results. Labs: Laboratory Results - last 24 hr 12/25/22 12/25/22 12/25/22 04:03 04:03 04:35 WBC 8.2 RBC 4.32 Hgb 13.9 Hct 40.5 MCV 93.8 MCH 32.2 H MCHC 34.3 RDW Std Deviation 41.0 RDW Coeff of Angela 11.9 Plt Count 239 MPV 10.1 Immature Gran % (Auto) 0.500 Neut % (Auto) 69.4 Lymph % (Auto) 24.3 [place] % (Auto) 4.9 Eos % (Auto) 0.5 Baso % (Auto) 0.4 Absolute Neuts (auto) 5.7 Absolute Lymphs (auto) 1.99 Nucleated RBC % 0 Sodium 141 Potassium 3.8 Chloride 108 H Carbon Dioxide 27.0 Anion Gap 6 BUN 26 H Creatinine 0.87 Estim Creat Clear Calc 45.07 Est GFR (MDRD) Af Amer 83 Est GFR (MDRD) Non-Af 69 BUN/Creatinine Ratio 29.8 H Glucose 146 H Calcium 9.0 Total Bilirubin 0.50 Direct Bilirubin 0.09 AST 27 ALT 29 Alkaline Phosphatase 54 Total Protein 7.5 Albumin 4.0 Globulin 3.5 Lipase 39 Urine Color Yellow Urine Clarity Clear Urine pH 5.0 Ur Specific [place] 1.030 Urine Protein 15 H Urine Glucose (UA) Normal Urine Ketones 5 H Urine Occult Blood 150 H Urine Nitrite Negative Urine Bilirubin Negative Urine Urobilinogen Normal Ur Leukocyte Esterase Negative Urine RBC 0-5 SEEN Urine WBC 0 SEEN Ur Squamous Epith Cells 0-5 SEEN Urine Bacteria 1+ Urine Mucus 0 SEEN Radiography Diagnostic Testing: Clinical Impression(s) from Imaging Studies Abdomen/Pelvis CT 12/25/22 04:51 IMPRESSION: Distal left ureteral calculus with moderate left hydroureteronephrosis. Colonic diverticulosis without evidence of acute diverticulitis. Electronically Signed: Isi Cerna MD at 5:53 EDT , Discharge Plan Triage Chief Complaint: Abd Pain ED Provider: Valdez Harvey Dx/Rx/DC Orders Clinical Impression: Kidney stone on left side, Renal colic Instructions: ED Kidney Stone w/ Colic Prescriptions: New oxycodone-acetaminophen [Percocet] 5-325 mg tablet 1 tab PO Q6H PRN (Reason: pain) 3 Days Qty: 12 0RF ketorolac 10 mg tablet 10 mg PO 4X/DAY PRN PRN (Reason: pain) 5 Days Qty: 20 0RF ondansetron 4 mg tablet,disintegrating 4 mg PO TID PRN (Reason: nausea and vomiting) Qty: 21 0RF tamsulosin [Flomax] 0.4 mg capsule 0.4 mg PO DAILY Qty: 14 0RF No Action rosuvastatin 40 mg Tablet 40 mg PO QHS Primary Care Provider: Antonia Mixon Referrals: Antonia Mixon MD [Primary Care Provider] - Mare Nguyen MD [Med Staff - Active Staff] - Activity Restrictions/Additional Instructions: Please stay active and keep yourself well-hydrated. Take your medication as directed and if you are having intractable pain despite taking your pain medication or you develop a fever over 100.4 please return to the hospital for repeat evaluation. Disposition Disposition: Home, Self Care Discharge Date/Time: 12/25/22 07:48
== END 2022-12-25 07:48 | disposition home or self-care (01) ==
PROVIDERS: Emergency Provider Emergency Medicine; PCP Internal Medicine; Visit Provider Emergency Medicine
DX: N13.2 Hydronephrosis with renal and ureteral calculous obstruction (principal); N23 Unspecified renal colic; E78.5 Hyperlipidemia, unspecified; Z79.899 Other long term (current) drug therapy
CPT/HCPCS: 74176; 80048; 80076; 81001; 83690; 85025; 96361; 96374; 96375; 99283; J7030; A4216; J2405

== ENCOUNTER → 2023-01-24 | Outpatient (CLI) | payer MEDICARE, SELFPAY ==
--- NOTE | 2023-01-24 12:02 | US_ITS ---
INDICATION: LT URETERAL STONE EXAMINATION: Ultrasound US Kidney(s) complete (eg, kidneys and bladder) COMPARISON: Abdominal CT 12/25/2022. FINDINGS: 85 medrano scale ultrasound images of the kidneys and urinary bladder. KIDNEYS: Bilateral kidneys without shadowing nephrolith. Bilateral mild hydronephrosis.] No obvious renal parenchymal lesion. URINARY BLADDER:?Adequately distended urinary bladder is without obvious abnormality, 240 cc volume. Bilateral ureteral jets are identified. No significant free fluid. US/Kidney and Bladder IMPRESSION: Bilateral mild hydronephrosis. Electronically Signed: Jh Benitez MD at 5:49 EDT ,
== END | disposition home or self-care (01) ==
PROVIDERS: PCP Internal Medicine; Referring Provider Urology; Visit Provider Urology
DX: N20.1 Calculus of ureter (principal)
CPT/HCPCS: 76770

== ENCOUNTER → 2023-02-15 | Outpatient (CLI) | payer MEDICARE, SELFPAY ==
--- NOTE | 2023-02-15 13:25 | CT_ITS ---
STUDY: CT ABDOMEN AND PELVIS WITH AND WITHOUT CONTRAST REASON FOR EXAM: Female, 67 years old. Flank pain and fever RADIATION DOSAGE (If Supplied By Facility): CTDIvol = ( 11.34 ) mGy, DLP = ( 1760.31 ) mGycm TECHNIQUE: Transaxial images were obtained from the dome of the diaphragm to the symphysis pubis without oral contrast. IV 100mL [id number]-[id number] was administered. Sagittal and coronal images were reconstructed. Individualized dose optimization techniques were used for this CT. COMPARISON: 12/25/2022 FINDINGS: The visualized lung bases are unremarkable. The visualized portions of the heart are within normal limits. Normal liver. Normal gallbladder and extrahepatic biliary system. Normal spleen. Normal pancreas. Normal bilateral adrenal glands. No obstructive uropathy, or suspicious solid renal lesion. There are stable bilateral parapelvic renal cysts. There is a stable small hiatal hernia. Normal small intestine. There are multiple colonic diverticula consistent with diverticulosis. The appendix is visualized and appears normal. Appendix seen on coronal region images 73 through 82 Normal abdominal aorta. Normal inferior vena cava. Normal retroperitoneum. Normal urinary bladder. Uterus is present, the endometrium cannot be accurately evaluated with CT. There is a small umbilical hernia containing fat. There are diffuse degenerative changes of the visualized lumbar spine, and pelvis. CT/CT Abd/Pelvis W/WO Contrast IMPRESSION: No obstructive uropathy or suspicious solid renal lesion, there are stable bilateral parapelvic renal cysts. No specific follow-up needed Colonic diverticulosis, no CT evidence of acute diverticulitis No free intraperitoneal fluid, air, or suspicious adenopathy Uterus is present, the endometrium cannot be accurately evaluated with CT Electronically Signed: Chuck Gonzalez MD at 13:59 EDT ,
[2023-02-15 13:38] LABS: CREATININE FINGERSTICK < 0.9 mg/dL (0.55-1.02); EGFR FINGERSTICK > 60.0000 mL/min (>60)
== END | disposition home or self-care (01) ==
LOC: CT 13:11
PROVIDERS: PCP Internal Medicine; Referring Provider Urology; Visit Provider Urology
DX: N18.30 Chronic kidney disease, stage 3 unspecified (principal)
CPT/HCPCS: 74178; Q9967

== ENCOUNTER → 2023-08-23 | Outpatient (CLI) | payer MEDICARE, SELFPAY ==
--- NOTE | 2023-08-23 12:13 | BI_ITS ---
MAMMOGRAPHY - BILATERAL SCREENING REASON FOR EXAM: Female, 67 years old. Routine annual screening examination. PERTINENT HISTORY: Non-contributory. TECHNIQUE: Digital bilateral breast minnie (3D mammographic acquisition) in the CC and MLO projections. 2-D mediolateral oblique (MLO) and craniocaudad (CC) views of both breasts were obtained. CAD: Full Field Digital Mammography with Computer Added Detection was performed. COMPARISON: Comparison is made with prior study of August 17, 2022 and August 10, 2021. FINDINGS: Breast Composition: There are scattered areas of fibroglandular density. There are no dominant masses or suspicious calcifications. Stable benign-appearing bilateral axillary lymph nodes. No other significant abnormalities are identified. There has been no significant change since the prior study. BI/SCRN MAMM (CAD)W/MINNIE BILAT IMPRESSION: Stable bilateral screening mammogram. Yearly follow-up mammogram recommended. (A) ASSESSMENT CATEGORY: BIRADS Category 2: Benign. A letter regarding these results will be sent to the patient by the facility within 30 days. Approximately 10% of breast cancers are not detected by mammography. A normal mammogram should not delay biopsy of a clinically suspicious abnormality. [id number] Electronically Signed: Bertin Cummins MD at 13:24 EST ,
== END | disposition home or self-care (01) ==
LOC: OPBI 12:13
PROVIDERS: PCP Internal Medicine; Referring Provider Internal Medicine; Visit Provider Internal Medicine
DX: Z12.31 Encounter for screening mammogram for malignant neoplasm of breast (principal)
CPT/HCPCS: 77063; 77067

== ENCOUNTER → 2023-11-01 | Outpatient (CLI) | payer MEDICARE, SELFPAY ==
--- NOTE | 2023-11-01 13:24 | NEURO ---
NCS and/or EMG Patient Report Ordering Doctor: Antonia Mixon DATE OF SERVICE: 11/01/23 Tala presents for electrodiagnostic testing of the left upper limb. She reports numbness and tingling in the left hand with symptoms radiating to the forearm. Electrodiagnostic findings: Left median motor nerve demonstrates prolonged latency with normal amplitude and conduction velocity. Left ulnar motor response is within normal limits, including conduction across the elbow. Normal left median and ulnar F?waves. Prolonged median sensory latency at the wrist. Normal ulnar and radial sensory responses. Needle EMG testing was performed in the left upper limb. All muscles tested showed no evidence of denervation with normal motor unit action potentials. Electrodiagnostic impression: This is an abnormal study in the left upper limb. 1. Electrodiagnostic findings suggestive of left-sided median mononeuropathy. This consistent with a mild left carpal tunnel syndrome. 2. No electrodiagnostic evidence is noted for cervical radiculopathy. Multi Select Codes Neurology Neurology Interp Codes: 89759-40 Musc test done w/n test comp (interp) and 57104-19 Nrv cndj tst 5-6 studies (interp)
== END | disposition home or self-care (01) ==
LOC: PSN 10:03
PROVIDERS: PCP Internal Medicine; Referring Provider Internal Medicine; Visit Provider Internal Medicine
DX: R20.0 Anesthesia of skin (principal)
CPT/HCPCS: 95886; 95909

== ENCOUNTER → 2023-11-14 | Outpatient (CLI) | payer MEDICARE, SELFPAY ==
--- NOTE | 2023-11-14 07:10 | ECHOD_ITS ---
Reason For Study: Mitral Regurgitation Procedure This was a 2D Doppler, Color Flow transthoracic echocardiogram. Exam performed in department. Left Ventricle Normal LV size. The estimated ejection fraction is 70 %. No evidence for diastolic dysfunction. No regional wall motion abnormalities noted. Right Ventricle Normal RV size. Normal systolic function. Atria The left and right atria are normal. No doppler evidence for ASD. Mitral Valve There is no mitral valve stenosis. Trivial mitral valve insufficiency. Tricuspid Valve There is no tricuspid stenosis. Trivial tricuspid valve insufficiency. Pulmonary artery systolic pressure is 25 mmHg. Aortic Valve Trisinus/trileaflet aortic valve. There is no aortic stenosis. Trivial aortic valve insufficiency. Pulmonic Valve There is no pulmonic valvular stenosis. No pulmonic valve insufficiency identified. Great Vessels Normal aortic root. Pericardium/Pleural No pericardial effusion. MMode/2D Measurements & Calculations LVIDd: 3.7 cm IVSd: 1.00 cm Ao root diam: 2.9 cm LVIDs: 2.1 cm LVPWd: 0.85 cm RVDd: 2.4 cm FS: 43.2 % LAV(MOD-bp): 36.1 ml LVAd ap4: 20.5 cm2 LVAd ap2: 20.4 cm2 LAV(MOD-bp) Indexed: 21.4 ml/m2 LVLd ap4: 7.1 cm LVLd ap2: 7.2 cm LAV(MOD-sp2): 26.6 ml EDV(MOD-sp4): 48.8 ml EDV(MOD-sp2): 49.7 ml LAV(MOD-sp4): 39.9 ml EDV(sp4-el): 49.7 ml EDV(sp2-el): 49.0 ml LVAs ap4: 11.5 cm2 LVAs ap2: 10.1 cm2 LVLs ap4: 5.8 cm LVLs ap2: 6.0 cm ESV(MOD-sp4): 19.5 ml ESV(MOD-sp2): 14.5 ml ESV(sp4-el): 19.4 ml ESV(sp2-el): 14.2 ml EF(MOD-sp4): 60.0 % EF(MOD-sp2): 70.8 % EF(sp4-el): 61.1 % SV(MOD-sp4): 29.3 ml SV(MOD-sp2): 35.2 ml SV(sp4-el): 30.4 ml LA dimension(2D): 3.8 cm LA A4 area: 15.9 cm2 RA A4 area: 9.6 cm2 TAPSE: 1.6 cm Time Measurements MV dec time: 0.20 sec Doppler Measurements & Calculations MV E max sabas: 93.7 cm/sec Lat Peak E' Sabas: 9.3 cm/sec Med Peak E' Sabas: 7.5 cm/sec MV A max sabas: 121.9 cm/sec E/E' lat: 10.1 E/E' med: 12.4 MV E/A: 0.77 MV dec slope: 463.1 cm/sec2 Ao V2 max: 168.3 cm/sec AI max sabas: 427.6 cm/sec Ao max P.3 mmHg AI max P.1 mmHg Ao V2 mean: 112.9 cm/sec AI dec slope: 202.2 cm/sec2 Ao mean P.9 mmHg AI P1/2t: 619.6 msec Ao V2 VTI: 36.8 cm AV (velocity ratio): 0.85 LV V1 max: 133.5 cm/sec PA V2 max: 107.7 cm/sec TR max sabas: 228.5 cm/sec LV V1 max P.1 mmHg TR max P.9 mmHg LV V1 mean P.1 mmHg LV V1 mean: 97.1 cm/sec LV V1 VTI: 31.3 cm ECHO/Echo Complete Interpretation Summary The estimated ejection fraction is 70 %. No evidence for diastolic dysfunction. Trivial mitral valve insufficiency. Trivial aortic valve insufficiency. Ordering Physician: Antonia Mixon Referring Physician: Antonia Mixon Performed By: Janay Barlow RDCS
--- NOTE | 2023-11-17 11:10 | STRESSREP_ITS ---
Stress Test Report Date: 11/14/2023 Procedure: Exercise tolerance test/imaging study Indications: Chest pain Consent: Per the patient Procedure: The patient exercised on a Edmond protocol for 4 minutes and 15 seconds achieving a peak heart rate of 144 bpm (94% predicted maximal heart rate) with a peak blood pressure 204/100 mmHg and a peak MET capacity of 7 METs. The baseline ECG demonstrated normal sinus rhythm. The peak exercise ECG demonstrated no significant ST-T changes. EKG during recovery revealed no significant ischemic changes [There were no cardiac dysrhythmias pretest, during exercise, or recovery]. The functional capacity was considered normal for age. There was [no complaint of chest discomfort during exercise or recovery]. The examination was discontinued secondary to achieving target heart rate. Impression: 1. Technically adequate (percent predicted maximal heart rate greater than 85%) exercise tolerance test 2. Stress test is negative for exercise-induced EKG changes of ischemia 3. The test test is negative for exercise-induced chest pain 4. Functional capacity is normal for age 5. Nuclear images pending Myocardial perfusion imaging study: Technique: The patient was injected with 11.5 mCi of technetium 99m Cardiolite and subsequently rest SPECT Cardiolite nuclear imaging was obtained in the horizontal long, vertical long, and short axis views. The patient exercised on a Edmond protocol. Please see above for details. The patient was injected with 34.7 mCi of technetium 99m Cardiolite and subsequently stress SPECT Cardiolite nuclear imaging was obtained in the horizontal long, vertical long, and short axis views. A gated Cardiolite study at peak stress was obtained. Interpretation: Rest and stress SPECT Cardiolite nuclear imaging status post realignment, normalization, and attenuation correction, demonstrates no significant ischemia or infarction. The gated Cardiolite study demonstrates no significant regional wall motion abnormalities. The reported LVEF is greater than 70%. Impression: 1. There is no evidence of significant ischemia or infarction. 2. The gated Cardiolite study reports an LVEF of greater than 70%. This note was generated with Cogbooksation software. It may contain incorrect words, spelling, and punctuation that were not noted in checking the note before signing.
== END | disposition home or self-care (01) ==
PROVIDERS: PCP Internal Medicine; Referring Provider Internal Medicine; Visit Provider Internal Medicine
DX: R06.02 Shortness of breath (principal); I34.0 Nonrheumatic mitral (valve) insufficiency
CPT/HCPCS: 78452; 93017; 93306; A9500; A4216

== ENCOUNTER 2024-06-06 20:57 | Emergency (ER) | payer MEDICARE, SELFPAY ==
[2024-06-06 20:58] VITALS: BP 157/74; PULSE 87; RESP 16; TEMP 36.8; O2SAT 98; BMI 31.2
--- NOTE | 2024-06-06 21:12 | ED.VIS.LOWEX ---
HPI <ARTURO Chowdary - Last Filed: 06/06/24 22:10> History of Present Illness Chief Complaint: Lower Extremity Injury Narrative Narrative: Patient presenting today with pain and swelling to her right calf that started this afternoon. She reports that this evening, her calf became slightly red, prompting her to call her PCP who her encouraged her to come in for evaluation. She denies any injury to the area. She denies any history of blood clots or recent surgery/procedure/travel/immobilization. She did just recently get new shoes and has been doing water therapy and is not sure if that is contributing to her pain. She denies any fevers, chills, chest pain, and shortness of breath. PFSH <ARTURO Chowdary - Last Filed: 06/06/24 22:10> [facility] Medical History Hyperlipemia Seasonal allergies Diverticulitis IBS (irritable bowel syndrome) Home Medications ?Medication ?Instructions ?Recorded ?Last Taken ?Type ketorolac 10 mg tablet 10 mg PO 4X/DAY PRN PRN pain 5 12/25/22 Unknown Rx days #20 tabs ondansetron 4 mg disintegrating 4 mg PO TID PRN nausea and 12/25/22 Unknown Rx tablet vomiting #21 tabs oxycodone-acetaminophen 5 mg-325 1 tab PO Q6H PRN pain 3 days #12 12/25/22 Unknown Rx mg tablet (Percocet) tabs rosuvastatin 40 mg tablet 40 mg PO QHS 12/25/22 Unknown History tamsulosin 0.4 mg capsule (Flomax) 0.4 mg PO DAILY #14 caps 12/25/22 Unknown Rx apixaban 5 mg (74 tabs) tablets in 5 mg PO BID #74 tabs 06/06/24 Unknown Rx a dose pack (Eliquis DVT-PE Treat 30D Start) Allergy/AdvReac Type Severity Reaction Status Date / Time milk Allergy Upset Verified 06/06/24 20:59 Stomach Penicillins Allergy Upset Verified 06/06/24 20:59 Stomach Surgical History History of delivery Social History (Reviewed 06/06/24 @ 21:12 by KIM Chowdary Smoking Status: Never smoker ROS <ARTURO Chowdary - Last Filed: 06/06/24 22:10> ROS ED Constitutional Constitutional ED: Denies chills or fever(s) Cardiovascular Cardiovascular: Denies chest pain Respiratory/Chest Respiratory/Chest: Denies dyspnea Gastrointestinal Gastrointestinal: Denies abdominal pain, nausea or vomiting Musculoskeletal Musculoskeletal: Reports myalgias Integumentary Denies Abrasions or rash Neurologic Neurologic: Denies paresthesias EXAM <ARTURO Chowdary - Last Filed: 06/06/24 22:10> Physical Exam Const Vital Signs: 06/06/24 20:58 Temperature 98.2 F Temperature Source Oral Pulse Rate 87 Respiratory Rate 16 Blood Pressure 157/74 H Blood Pressure Mean 101 Pulse Ox 98 Oxygen Delivery Method Room Air Positive well nourished, well developed and no apparent distress General Appearance ED: well developed HEENT Reports normocephalic and head/scalp atraumatic Mouth ED: Yes moist mucous membranes normal Eyes PERRL and EOMs intact bilaterally Neck full ROM and supple Chest Wall inspection of chest normal Resp normal respiratory effort and clear to auscultation bilaterally Cardio regular rate and regular rhythm Back/Spine normal ROM and normal to inspection Extremity normal to inspection and full ROM Extremity Narrative: Positive Homans' sign on the right, right DP pulse 2+, good cap refill, sensation intact. Compartments are soft, nonischemic limb. Neuro oriented x3, CN's II-XII intact bilaterally, moves all extremities, no focal motor deficits and no sensory deficits noted Sensorium / Orientation: awake and alert Psych mental status grossly normal and thought process normal Skin no rashes or lesions noted and no wounds <Dr. Miguel Levi, - Last Filed: 06/06/24 22:27> Physical Exam Const Vital Signs: 06/06/24 20:58 Temperature 98.2 F Temperature Source Oral Pulse Rate 87 Respiratory Rate 16 Blood Pressure 157/74 H Blood Pressure Mean 101 Pulse Ox 98 Oxygen Delivery Method Room Air MDM <ARTURO Chowdary - Last Filed: 06/06/24 22:10> MDM MDM Narrative Medical decision making narrative: Patient presenting today with pain to the right calf. She has minimal tenderness to the right mid calf, no erythema or warmth on my exam. Compartments are soft, no ischemic limb. Venous duplex ultrasound will be obtained to rule out DVT. Ultrasound does show a DVT at the soleal vein of the right mid calf. I did speak with Dr. Kimball, he recommends anticoagulation. She will be treated with Eliquis with first dose here. She does not have any contraindications to taking this medication or recent GI bleed. The risks of starting a blood thinner were reviewed with her and reasons to return to the ED. She can follow-up with Dr. Kimball and her PCP who she sees tomorrow. She will be discharged home in stable condition. I have personally performed a face to face assessment of the patient and have reviewed the JOSE Note. I performed a substantive portion of the visit including all aspects of the following. My garay findings include: History is [patient presents with pain to the right calf that started about 5 days ago. She denies injury. She did state that she got a new pair shoes recently. She is also been doing water activities which she has been doing for a while. Denies recent travel or surgery. No history of DVT or PE. Denies fevers or chills or sweats.] Patient states that her primary care physician advised her to come in and get evaluated for DVT. Exam is [HEENT-PERRLA, EOMI. Cranial nerves II through XII grossly intact. TMs clear. Mucous membranes moist. No adenopathy. Cardiovascular-regular rate and rhythm without murmur or ectopy Lungs-clear to auscultation, chest wall stable without crepitus or subcu emphysema Abdomen-normoactive bowel sounds, soft, nontender, no rebound or rigidity, no peritoneal signs. Extremities-intact ?4, normal range of motion, normal pulses, atraumatic. Right calf-mild tenderness to palpation of the calf at the origin of the Achilles tendon. No erythema or warmth noted. There is no ecchymosis or bruising. No ropes or cords palpated.] Medical Decison Making [patient will have a venous Doppler to rule out DVT.] Other additions or changes: [None] Radiography Diagnostic Testing: Clinical Impression(s) from Imaging Studies Venous Duplex 06/06/24 21:13 IMPRESSION: DVT in a single small calf vein. No evidence of DVT in the larger deep veins. Electronically Signed: Baldomero Kruse MD at 22:25 [facility] , <Dr. Miguel Levi, DO - Last Filed: 06/06/24 22:27> [facility] Narrative Medical decision making narrative: Patient presenting today with pain to the right calf. She has minimal tenderness to the right mid calf, no erythema or warmth on my exam. Compartments are soft, no ischemic limb. Venous duplex ultrasound will be obtained to rule out DVT. Ultrasound does show a DVT at the soleal vein of the right mid calf. I did speak with Dr. Kimball, he recommends anticoagulation. She will be treated with Eliquis with first dose here. She does not have any contraindications to taking this medication or recent GI bleed. The risks of starting a blood thinner were reviewed with her and reasons to return to the ED. She can follow-up with Dr. Kimball and her PCP who she sees tomorrow. She will be discharged home in stable condition. I have personally performed a face to face assessment of the patient and have reviewed the JOSE Note. I performed a substantive portion of the visit including all aspects of the following. My garay findings include: History is [patient presents with pain to the right calf that started about 5 days ago. She denies injury. She did state that she got a new pair shoes recently. She is also been doing water activities which she has been doing for a while. Denies recent travel or surgery. No history of DVT or PE. Denies fevers or chills or sweats.] Patient states that her primary care physician advised her to come in and get evaluated for DVT. Exam is [HEENT-PERRLA, EOMI. Cranial nerves II through XII grossly intact. TMs clear. Mucous membranes moist. No adenopathy. Cardiovascular-regular rate and rhythm without murmur or ectopy Lungs-clear to auscultation, chest wall stable without crepitus or subcu emphysema Abdomen-normoactive bowel sounds, soft, nontender, no rebound or rigidity, no peritoneal signs. Extremities-intact ?4, normal range of motion, normal pulses, atraumatic. Right calf-mild tenderness to palpation of the calf at the origin of the Achilles tendon. No erythema or warmth noted. There is no ecchymosis or bruising. No ropes or cords palpated.] Medical Decison Making [patient will have a venous Doppler to rule out DVT.] Ultrasound study positive for DVT in the right soleus vein. We discussed case with vascular on-call Dr. Kimball who recommended anticoagulation and outpatient follow-up either with his office or patient's primary care physician. Other additions or changes: [None] Radiography Diagnostic Testing: Clinical Impression(s) from Imaging Studies Venous Duplex 06/06/24 21:13 IMPRESSION: DVT in a single small calf vein. No evidence of DVT in the larger deep veins. Electronically Signed: Baldomero Kruse MD at 22:25 EST , Discharge Plan Triage Chief Complaint: Lower Extremity Injury ED Midlevel Provider: Razia Billy ED Provider: Miguel Levi Dx/Rx/DC Orders Clinical Impression: Acute deep vein thrombosis (DVT) of right lower extremity Instructions: ED Deep Vein Thrombosis (DVT) Prescriptions: New Eliquis DVT-PE Treat 30D Start 5 mg (74 tabs) tablets,dose pack 5 mg PO BID Qty: 74 0RF No Action rosuvastatin 40 mg Tablet 40 mg PO QHS oxycodone-acetaminophen [Percocet] 5-325 mg tablet 1 tab PO Q6H PRN (Reason: pain) 3 Days Qty: 12 0RF ketorolac 10 mg tablet 10 mg PO 4X/DAY PRN PRN (Reason: pain) 5 Days Qty: 20 0RF ondansetron 4 mg tablet,disintegrating 4 mg PO TID PRN (Reason: nausea and vomiting) Qty: 21 0RF tamsulosin [Flomax] 0.4 mg capsule 0.4 mg PO DAILY Qty: 14 0RF Primary Care Provider: Antonia Mixon Referrals: Antonia Mixon MD [Primary Care Provider] - 3-5 Days Eduar Kimball MD [Med Staff - Active Staff] - 1-2 Weeks Activity Restrictions/Additional Instructions: Follow-up with your PCP and return for any worsening of symptoms. Print Language: Haitian Disposition Disposition: Home, Self Care
--- NOTE | 2024-06-06 21:13 | US_ITS ---
STUDY: VENOUS DOPPLER ULTRASOUND - RIGHT LOWER EXTREMITY REASON FOR EXAM: Female, 68 years old. RT CALF PAIN TECHNIQUE: Ultrasound evaluation of the deep vein system to include lamar-scale imaging and compression was performed. Lamar-scale imaging and Doppler sonographic evaluation, including duplex spectral analysis and qualitative color flow sonography, was performed. COMPARISON: None. FINDINGS: Common Femoral Vein: Normal compression, spontaneity and augmentation. Normal color Doppler. Common Femoral Vein/Greater Saphenous Junction: Normal compression, spontaneity and augmentation. Normal color Doppler. Deep Femoral Vein: Normal compression, spontaneity and augmentation. Normal color Doppler. Femoral Proximal: Normal compression, spontaneity and augmentation. Normal color Doppler. Femoral Middle: Normal compression, spontaneity and augmentation. Normal color Doppler. Femoral Distal: Normal compression, spontaneity and augmentation. Normal color Doppler. Popliteal Vein: Normal compression, spontaneity and augmentation. Normal color Doppler. Posterior Tibial Vein: Normal compression, spontaneity and augmentation. Normal color Doppler. Peroneal Vein: Normal compression, spontaneity and augmentation. Normal color Doppler. Probable thrombus and a single deep soleus vein. US/Venous Duplex Imag/Limited/Uni IMPRESSION: DVT in a single small calf vein. No evidence of DVT in the larger deep veins. Electronically Signed: Baldomero Kruse MD at 22:25 EST ,
[2024-06-06] MEDS: APIXABAN 5 MG TABLET 10 MG PO (22:08)
[2024-06-06 22:43] VITALS: BP 144/70; PULSE 74; RESP 20; TEMP 36.6; O2SAT 99
== END 2024-06-06 22:43 | disposition home or self-care (01) ==
PROVIDERS: Emergency Provider Emergency Medicine; PCP Internal Medicine; Visit Provider Emergency Medicine
DX: I82.461 Acute embolism and thrombosis of right calf muscular vein (principal); E78.5 Hyperlipidemia, unspecified; Z79.01 Long term (current) use of anticoagulants
CPT/HCPCS: 93971; 99282

== ENCOUNTER → 2024-08-28 | Outpatient (CLI) | payer MEDICARE, SELFPAY ==
--- NOTE | 2024-08-28 10:47 | BI_ITS ---
PROCEDURE: SCRN MAMM (CAD)W/MINNIE BILAT REASON FOR EXAM: F, Age 68 y/o, routine mammographic follow-up. No family history of breast cancer. TECHNIQUE: Bilateral screening digital breast tomosynthesis with 2D and 3D images. Computer aided detection. COMPARISON: Prior exam(s) dating back to August 23, 2023.. FINDINGS: There are scattered areas of fibroglandular density. Stable small benign- appearing bilateral axillary lymph nodes. No suspicious masses, areas of developing architectural distortion, or suspicious calcifications. BI/SCRN MAMM (CAD)W/MINNIE BILAT IMPRESSION: BI-RADS 2: BENIGN. RECOMMEND ANNUAL MAMMOGRAPHIC SCREENING. Follow-up code: Routine Follow-up The patient will be notified of the results by letter. Reading Location: [place] [id number]
== END | disposition home or self-care (01) ==
LOC: OPBI 10:47
PROVIDERS: PCP Internal Medicine; Referring Provider Internal Medicine; Visit Provider Internal Medicine
DX: Z12.31 Encounter for screening mammogram for malignant neoplasm of breast (principal)
CPT/HCPCS: 77063; 77067

== ENCOUNTER → 2024-09-25 | Outpatient (CLI) | payer MEDICARE, SELFPAY ==
--- NOTE | 2024-09-25 13:39 | VDLE_ITS ---
Reason For Study Reason For Study: Right leg pain RIGHT LEFT GSV is normal. CFV is compressible, spontaneous, phasic, competent, CFV is compressible, spontaneous, phasic, competent and demonstrates normal augmentation. and demonstrates normal augmentation. FV is compressible, spontaneous, phasic, competent and demonstrates normal augmentation. POP V is compressible, spontaneous, phasic, competent and demonstrates normal augmentation. T/P Trunk is compressible. PTV is compressible. RT PerV is compressible. SoleusV is partially compressible with minimal venous flow noted. Compared to 06/06/2024. Procedure This is a venous duplex using B-mode, color flow and spectral Doppler. Exam performed in department. A preliminary report was called and/or faxed to Dr. Mixon. VL/Venous Duplex US, Unilateral Interpretation Summary Chronic deep vein thrombosis noted in right soleus vein, partial resolution sin ce prior imaging. Ordering Physician: Antonia Mixon Referring Physician: Antonia Mixon Performed By: Yamilex Qiu RVT
== END | disposition home or self-care (01) ==
LOC: CVS 13:36
PROVIDERS: PCP Internal Medicine; Referring Provider Internal Medicine; Visit Provider Internal Medicine
DX: M79.661 Pain in right lower leg (principal)
CPT/HCPCS: 93971

== ENCOUNTER → 2024-11-14 | Outpatient (CLI) | payer MEDICARE, SELFPAY ==
--- NOTE | 2024-11-14 11:00 | BD_ITS ---
PROCEDURE: DEXA BONE DENSITY STUDY 11/14/2024 REASON FOR EXAM: F, age 69 y/o . Postmenopausal. TECHNIQUE: DEXA scan of sites with data reported below. Scanner utilized: [employer] REFERENCE LINKS: [facility] Position[facility] COMPARISON: DEXA examination dated 08/10/2021 FINDINGS: BMD and T-SCORES Lumbar spine: 0.937 g/cm2, T-score -0.9 Levels: L1 through L4 Left femoral neck: 0.620 g/cm2, T-score -2.1 Left total hip: 0.804 g/cm2, T-score -1.1 Change from prior: . Right femoral neck: 0.632 g/cm2, T-score -2.0 Right total hip: 0.768 g/cm2, T-score -1.4 The World Health Organization has defined the following categories based on bone density: Normal bone density: T-score equal to or greater than -1.0 Osteopenia: T-score between -1.0 and -2.5 Osteoporosis: T-score equal to or less than -2.5 FRAX (or Comparable) Fracture Risk Assessment: 10 Year Probability of Fracture: Major Osteoporotic Fracture: 11% Hip Fracture: 2.0% (Note: FRAX is not to be reported in setting of normal range bone density, osteoporosis on DEXA, known history of osteoporosis, prior osteoporotic hip or vertebral fracture, or for any patient undergoing pharmacological treatment for bone loss.) The National Osteoporosis Foundation (NOF) recommends pharmacological treatment for patients with a FRAX 10-year risk of 3% or higher for a hip fracture, or 20% or higher for a major osteoporotic fracture, to prevent osteoporosis and reduce fracture risk. The patient does meet the pharmacological treatment recommendations for prevention of osteoporosis. BD/Dexa Bone Density Study IMPRESSION: OSTEOPENIA. Recommend follow-up as clinically warranted. Reading Location: [id number]
== END | disposition home or self-care (01) ==
LOC: OPBD 10:58
PROVIDERS: PCP Internal Medicine; Referring Provider Internal Medicine; Visit Provider Internal Medicine
DX: Z78.0 Asymptomatic menopausal state (principal)
CPT/HCPCS: 77080

== ENCOUNTER → 2025-06-26 | Outpatient (CLI) | payer MEDICARE, SELFPAY ==
--- NOTE | 2025-06-26 13:47 | VDLE_ITS ---
Reason For Study Reason For Study: Calf Swelling RIGHT LEFT CFV is compressible, spontaneous, phasic, competent GSV is normal. and demonstrates normal augmentation. CFV is compressible, spontaneous, phasic, competent, Procedure and demonstrates normal augmentation. This is a venous duplex using B-mode, color flow and FV is compressible, spontaneous, phasic, competent spectral Doppler. and demonstrates normal augmentation. Exam performed in department. POP V is compressible, spontaneous, phasic, competent A preliminary report was called and/or faxed to Antonia and demonstrates normal augmentation. MD Oral. T/P Trunk is compressible. PTV is compressible. LT PerV is compressible. Nonvascularized structure noted in the popliteal fossa measuring 0.83 cm x 3.02 cm. VL/Venous Duplex US, Unilateral Interpretation Summary Deep veins of the left lower extremity are patent and compressible segmentally. There is no evidence of left lower extremity deep vein thrombosis. The left great saphenous vein appears patent an d compressible segmentally. Nonvascularized structure noted in the popliteal fossa measuring 0.83 cm x 3.02 cm. Ordering Physician: Antonia Mixon Referring Physician: Antonia Mixon M.D. Performed By: Ro Lugo RVT
== END | disposition home or self-care (01) ==
LOC: CVS 13:33
PROVIDERS: PCP Internal Medicine; Visit Provider Internal Medicine
DX: M79.89 Other specified soft tissue disorders (principal)
CPT/HCPCS: 93971